=== PATIENT | female | born 1960 | race Caucasian/White ===

== ENCOUNTER 2018-01-22 19:39 | Emergency (ER) | payer MEDICAID ==
[~2018-01-22] VITALS: Ht 185.4 cm; Wt 112.9 kg
[2018-01-22 20:31] LABS: Urine Bacteria FEW /hpf (None Seen); Urine Blood Negative /uL (Negative); Urine Mucus FEW (None Seen); Urine Specific Gravity 1.016 (1.001-1.035); Urine WBC 1 /hpf (0 - 5)
[2018-01-22 20:45] LABS: Basophils # (auto) 0.1 uL; Basophils % (auto) 1.1 % (0.0-2.0); Eosinophils # (auto) 0.4 uL; Eosinophils % (auto) 5.3 % (0.0-7.0); Hematocrit 47.7 % (36.0-46.0); Hemoglobin 16.1 g/dL (12.2-16.2); Lymphocytes # (auto) 1.6 uL; Lymphocytes % (auto) 19.2 % (10.0-50.0); Mean Corpuscular Hemoglobin 31.5 pg (28.0-32.0); Mean Corpuscular Hgb Conc. 33.7 g/dL (32.0-36.0); Mean Corpuscular Volume 93.4 fL (80.0-100.0); Monocytes # (auto) 0.7 uL; Monocytes % (auto) 8.2 % (0.0-12.0); Neutrophils # (auto) 5.4 uL; Neutrophils % (auto) 66.2 % (37.0-80.0); Nucleated Red Blood Cells % 0.1 %; Platelet Count (auto) 328 10^3/uL (140-450); Red Blood Cells 5.11 10^6/uL (4.0-5.20); Red Cell Distribution Width 13.2 % (11.8-14.3); White Blood Cell 8.2 10^3/uL (4.4-10.8)
[2018-01-22 20:56] LABS: INR 0.96 (0.9-1.15); Partial Thromboplastin Time 26.8 sec (22.64-33.71); Prothrombin Time 10.5 sec (9.37-12.3)
[2018-01-22 21:06] LABS: Albumin 3.7 g/dL (3.4-5.0); Amylase 52 U/L (25-115); Anion Gap 8 (5-15); Blood Urea Nitrogen 14 mg/dL (7-18); Calcium 8.8 mg/dL (8.5-10.1); Carbon Dioxide 27 mmol/L (21-32); Chloride 109 mmol/L (98-107); GFR African American 74 mL/min; GFR Non-African American 61 mL/min; Glucose 93 mg/dL (74-106); Lipase 226 U/L (73-393); Magnesium 2.3 mg/dL (1.6-2.6); Sodium 144 mmol/L (136-145)
[2018-01-22 21:14] LABS: Alanine Aminotransferase 69 U/L (13-56); Alkaline Phosphatase 79 U/L (45-117); Aspartate Aminotransferase 36 U/L (15-37); Bilirubin, Total 0.5 mg/dL (0.2-1.0); Total Protein 7.3 g/dL (6.4-8.2)
[2018-01-23] MEDS ORDERED: ACETAMINOPHEN 325 MG TAB PO ONE ×2 (01:25→01:30)
[2018-01-23] MEDS ORDERED: metroNIDAZOLE 500 MG TAB PO ONE (01:45)
[2018-01-23] MEDS ORDERED: SODIUM CHLORIDE 0.9% 1,000 ML IV ONE (01:45)
[2018-01-23] MEDS ORDERED: ONDANSETRON HCL 4 MG/2 ML VIAL IV ONE (01:45)
[2018-01-23] MEDS ORDERED: NALBUPHINE HCL 10 MG/1ml INJECTION IV ONE (01:45)
[2018-01-23 02:20] LABS: Amylase 51 U/L (25-115); Lipase 223 U/L (73-393)
[2018-01-23 05:23] VITALS: BP 125/75
== END 2018-01-23 05:39 | disposition home or self-care (01) ==
LOC: ER 19:39
DX: K80.20 Calculus of gallbladder without cholecystitis without obstruction (principal); K57.30 Diverticulosis of large intestine without perforation or abscess without bleeding; J45.909 Unspecified asthma, uncomplicated; I10 Essential (primary) hypertension; M79.7 Fibromyalgia; Z86.73 Personal history of transient ischemic attack (TIA), and cerebral infarction without residual deficits
CPT/HCPCS: 36415; 74176; 80053; 81001; 81025; 82150; 83690; 83735; 84484; 85025; 85610; 85730; 93005; 96361; 96374; 96375; 99285; J2300; J2405

== ENCOUNTER 2018-11-03 16:37 | Emergency (ER) | payer MEDICAID ==
[2018-11-03 16:57] VITALS: BP 113/76
== END 2018-11-03 17:46 | disposition home or self-care (01) ==
LOC: ER 16:40
DX: L53.9 Erythematous condition, unspecified (principal); R22.32 Localized swelling, mass and lump, left upper limb; T88.1XXA Other complications following immunization, not elsewhere classified, initial encounter; J45.909 Unspecified asthma, uncomplicated; I10 Essential (primary) hypertension; F17.210 Nicotine dependence, cigarettes, uncomplicated; Z86.73 Personal history of transient ischemic attack (TIA), and cerebral infarction without residual deficits

== ENCOUNTER 2018-11-25 11:33 | Emergency (ER) | payer MEDICAID ==
[~2018-11-25] VITALS: Ht 170.2 cm; Wt 90.7 kg
[2018-11-25 12:26] LABS: Basophils # (auto) 0.1 uL; Basophils % (auto) 0.9 % (0.0-2.0); Eosinophils # (auto) 0.3 uL; Eosinophils % (auto) 5.1 % (0.0-7.0); Hematocrit 43.3 % (36.0-46.0); Hemoglobin 14.9 g/dL (12.2-16.2); Lymphocytes # (auto) 1.3 uL; Lymphocytes % (auto) 22.5 % (10.0-50.0); Mean Corpuscular Hemoglobin 31.6 pg (28.0-32.0); Mean Corpuscular Hgb Conc. 34.4 g/dL (32.0-36.0); Mean Corpuscular Volume 91.8 fL (80.0-100.0); Monocytes # (auto) 0.5 uL; Monocytes % (auto) 9.1 % (0.0-12.0); Neutrophils # (auto) 3.7 uL; Neutrophils % (auto) 62.4 % (37.0-80.0); Nucleated Red Blood Cells % 0.1 %; Platelet Count (auto) 274 10^3/uL (140-450); Red Blood Cells 4.72 10^6/uL (4.0-5.20); Red Cell Distribution Width 13.1 % (11.8-14.3); White Blood Cell 5.9 10^3/uL (4.4-10.8)
[2018-11-25 12:33] LABS: INR 0.95 (0.9-1.15); Partial Thromboplastin Time 27.1 sec (23.78-33.04); Prothrombin Time 10.2 sec (9.27-12.13)
[2018-11-25 12:35] LABS: Alanine Aminotransferase 52 U/L (13-56); Albumin 3.3 g/dL (3.4-5.0); Anion Gap 7 (5-15); Aspartate Aminotransferase 30 U/L (15-37); BUN/Creatinine Ratio 9.3; Blood Urea Nitrogen 9 mg/dL (7-18); Calcium 8.4 mg/dL (8.5-10.1); Carbon Dioxide 26 mmol/L (21-32); Chloride 109 mmol/L (98-107); GFR African American 76 mL/min; GFR Non-African American 63 mL/min; Glucose 80 mg/dL (74-106); Potassium 3.9 mmol/L (3.5-5.1); Sodium 142 mmol/L (136-145)
[2018-11-25 12:39] LABS: Alkaline Phosphatase 75 U/L (45-117); Bilirubin, Total 0.7 mg/dL (0.2-1.0); Total Protein 6.6 g/dL (6.4-8.2)
[2018-11-25] MEDS ORDERED: ASPirin-EC 81 mg tab PO ONE (16:30)
[2018-11-25] MEDS ORDERED: ONDANSETRON ODT 4 MG TAB PO ONE (16:30)
[2018-11-25] MEDS ORDERED: IOHEXOL 350 MG/ML 100ML IJ ONE (21:27)
[2018-11-25] MEDS ORDERED: MORPHINE SULFATE 4 MG/ML SYR/VIAL IV ONE (21:30)
[2018-11-25] MEDS ORDERED: NITROGLYCERIN 0.4 MG SL TAB SL ONE (21:30)
[2018-11-26 01:20] VITALS: BP 128/72
== END 2018-11-26 01:22 | disposition home or self-care (01) ==
LOC: EDBD 11:33 → ER 11:33
DX: R07.9 Chest pain, unspecified (principal); K80.20 Calculus of gallbladder without cholecystitis without obstruction; R59.0 Localized enlarged lymph nodes; I10 Essential (primary) hypertension; J45.909 Unspecified asthma, uncomplicated; Z86.73 Personal history of transient ischemic attack (TIA), and cerebral infarction without residual deficits
CPT/HCPCS: 36415; 71046; 71275; 80053; 83880; 84484; 85025; 85379; 85610; 85730; 93005; 96374; 99284; J2270; Q0162; Q9967

== ENCOUNTER 2020-07-19 11:21 | Emergency (ER) | payer MEDICAID ==
[~2020-07-19] VITALS: Ht 185.4 cm; Wt 113.4 kg
[2020-07-19 11:45] VITALS: BP 120/69
== END 2020-07-19 16:55 | disposition home or self-care (01) ==
LOC: ER 11:21
DX: S52.515A Nondisplaced fracture of left radial styloid process, initial encounter for closed fracture (principal); J01.90 Acute sinusitis, unspecified; Z20.828 Contact with and (suspected) exposure to other viral communicable diseases; J45.909 Unspecified asthma, uncomplicated; I10 Essential (primary) hypertension; Z87.891 Personal history of nicotine dependence; W18.39XA Other fall on same level, initial encounter; Y93.89 Activity, other specified; Y92.89 Other specified places as the place of occurrence of the external cause; Y99.8 Other external cause status
CPT/HCPCS: 29125; 36415; 71045; 73110; 73130; 87426

== ENCOUNTER 2021-03-11 12:22 | Emergency (ER) | payer MEDICAID ==
[~2021-03-11] VITALS: Ht 185.4 cm; Wt 113.4 kg
[2021-03-11 12:47] VITALS: BP 138/84
[2021-03-11] MEDS ORDERED: HYDROcodone-ACET 7.5/325MG TAB PO ONE (13:30)
[2021-03-11] MEDS ORDERED: HYDROcodone-ACET 7.5/325MG TAB ONE (13:37)
== END 2021-03-11 14:09 | disposition home or self-care (01) ==
LOC: ER 12:29
DX: S63.501A Unspecified sprain of right wrist, initial encounter (principal); S90.122A Contusion of left lesser toe(s) without damage to nail, initial encounter; S90.121A Contusion of right lesser toe(s) without damage to nail, initial encounter; I10 Essential (primary) hypertension; J45.909 Unspecified asthma, uncomplicated; F12.10 Cannabis abuse, uncomplicated; Z87.891 Personal history of nicotine dependence; W01.0XXA Fall on same level from slipping, tripping and stumbling without subsequent striking against object, initial encounter; Y93.89 Activity, other specified; Y92.89 Other specified places as the place of occurrence of the external cause; Y99.8 Other external cause status
CPT/HCPCS: 73110; 73630

== ENCOUNTER 2022-05-01 23:36 | Inpatient (IN) | payer MEDICAID ==
[~2022-05-01] VITALS: Ht 185.4 cm; Wt 108.0 kg
[2022-05-02 00:57] LABS: Basophils # (auto) 0.1 10 ^3/uL (0-0.2); Basophils % (auto) 1.1 % (0.0-2.0); Eosinophils # (auto) 0.3 10 ^3/uL (0-0.8); Hematocrit 47.2 % (36.0-46.0); Hemoglobin 15.6 g/dL (12.2-16.2); Lymphocytes # (auto) 2.6 10 ^3/uL (0.4-5.4); Lymphocytes % (auto) 33.2 % (10.0-50.0); Mean Corpuscular Hemoglobin 30.2 pg (28.0-32.0); Mean Corpuscular Volume 91.6 fL (80.0-100.0); Monocytes # (auto) 0.7 10 ^3/uL (0-1.3); Monocytes % (auto) 9.5 % (0.0-12.0); Neutrophils # (auto) 4.1 10 ^3/uL (1.6-8.6); Neutrophils % (auto) 52.2 % (37.0-80.0); Nucleated Red Blood Cells % 0.1 %; Red Blood Cells 5.16 10^6/uL (4.0-5.20); Red Cell Distribution Width 14.2 % (11.8-14.3); White Blood Cell 7.7 10^3/uL (4.4-10.8)
[2022-05-02 01:22] LABS: Albumin 3.8 g/dL (3.4-5.0); BUN/Creatinine Ratio 19.2; Calcium 8.9 mg/dL (8.5-10.1); Potassium 3.6 mmol/L (3.5-5.1)
[2022-05-02 01:24] LABS: Bilirubin, Total 1.1 mg/dL (0.2-1.0); Total Protein 6.9 g/dL (6.4-8.2)
[2022-05-02] MEDS ORDERED: TOPI50TA53 PO (04:33)
[2022-05-02] MEDS ORDERED: METO-289 PO (04:33)
[2022-05-02] MEDS ORDERED: DAPA1TAB4 PO (04:33)
[2022-05-02] MEDS ORDERED: GABA300C10 PO (04:33)
[2022-05-02] MEDS ORDERED: ATOR40TA52 PO (04:33)
[2022-05-02] MEDS ORDERED: hydrALAZINE HCL 20 MG/ML VL IV PRN (06:45)
[2022-05-02] MEDS ORDERED: ONDANSETRON HCL 4 MG/2 ML VIAL IV PRN (06:45)
[2022-05-02] MEDS ORDERED: ACETAMINOPHEN 325 MG TAB PO PRN (06:45)
[2022-05-02] MEDS ORDERED: MORPHINE SULFATE INJ 2 MG/ml SYRG IV PRN ×2 (06:45→07:15)
[2022-05-02] MEDS ORDERED: DOCUSATE SOD 100 MG CAP PO PRN (06:45)
[2022-05-02] MEDS ORDERED: HYDROcodone-ACET 5/325MG TAB PO PRN (06:45)
[2022-05-02] MEDS ORDERED: NITROGLYCERIN 0.4 MG SL TAB SL PRN (07:15)
[2022-05-02 08:14] LABS: Basophils # (auto) 0.1 10 ^3/uL (0-0.2); Basophils % (auto) 1.3 % (0.0-2.0); Eosinophils # (auto) 0.4 10 ^3/uL (0-0.8); Eosinophils % (auto) 5.9 % (0.0-7.0); Hematocrit 45.1 % (36.0-46.0); Lymphocytes % (auto) 32.9 % (10.0-50.0); Mean Corpuscular Hemoglobin 30.4 pg (28.0-32.0); Mean Corpuscular Hgb Conc. 33.3 g/dL (32.0-36.0); Mean Corpuscular Volume 91.4 fL (80.0-100.0); Monocytes # (auto) 0.7 10 ^3/uL (0-1.3); Monocytes % (auto) 11.5 % (0.0-12.0); Neutrophils # (auto) 2.9 10 ^3/uL (1.6-8.6); Neutrophils % (auto) 48.4 % (37.0-80.0); Nucleated Red Blood Cells % 0.1 %; Red Blood Cells 4.94 10^6/uL (4.0-5.20)
[2022-05-02 08:40] LABS: Albumin 3.5 g/dL (3.4-5.0); Calcium 8.9 mg/dL (8.5-10.1); Potassium 3.7 mmol/L (3.5-5.1)
[2022-05-02 08:44] LABS: BUN/Creatinine Ratio 20.5; Bilirubin, Total 1.6 mg/dL (0.2-1.0); Total Protein 6.2 g/dL (6.4-8.2)
[2022-05-02 09:16] VITALS: BP 127/62
[2022-05-02] MEDS: ASPirin 81 mg TAB PO SCH (09:16)
[2022-05-02] MEDS: METOPROLOL TARTRATE 25 MG TAB PO SCH ×2 (09:16→21:13)
[2022-05-02 13:00] VITALS: BP 104/54
[2022-05-02] MEDS: SODIUM CHLOR 0.9% PF (SALINE LOCK) 10ML VIAL/SYR IV SCH ×2 (16:42→21:14)
[2022-05-02 17:00] VITALS: BP 104/47
[2022-05-02 22:00] VITALS: BP 118/56
[2022-05-02] MEDS ORDERED: ATORVASTATIN 20 MG TAB PO SCH (22:00)
[2022-05-03 05:00] VITALS: BP 110/57
[2022-05-03 05:22] LABS: Basophils # (auto) 0.1 10 ^3/uL (0-0.2); Basophils % (auto) 1.1 % (0.0-2.0); Eosinophils # (auto) 0.4 10 ^3/uL (0-0.8); Eosinophils % (auto) 5.8 % (0.0-7.0); Hematocrit 46.8 % (36.0-46.0); Hemoglobin 15.7 g/dL (12.2-16.2); Lymphocytes # (auto) 1.8 10 ^3/uL (0.4-5.4); Mean Corpuscular Hemoglobin 30.7 pg (28.0-32.0); Mean Corpuscular Hgb Conc. 33.5 g/dL (32.0-36.0); Mean Corpuscular Volume 91.6 fL (80.0-100.0); Monocytes # (auto) 0.7 10 ^3/uL (0-1.3); Monocytes % (auto) 9.7 % (0.0-12.0); Neutrophils # (auto) 3.9 10 ^3/uL (1.6-8.6); Neutrophils % (auto) 57.4 % (37.0-80.0); Nucleated Red Blood Cells % 0.2 %; Red Blood Cells 5.11 10^6/uL (4.0-5.20); Red Cell Distribution Width 13.8 % (11.8-14.3); White Blood Cell 6.7 10^3/uL (4.4-10.8)
[2022-05-03] MEDS: SODIUM CHLOR 0.9% PF (SALINE LOCK) 10ML VIAL/SYR IV SCH ×3 (05:29→21:42)
[2022-05-03 05:51] LABS: Albumin 3.5 g/dL (3.4-5.0); BUN/Creatinine Ratio 15.7; Bilirubin, Total 1.7 mg/dL (0.2-1.0); Total Protein 6.3 g/dL (6.4-8.2)
[2022-05-03 08:30] VITALS: BP 92/55
[2022-05-03 09:00] VITALS: BP 92/55
[2022-05-03] MEDS: METOPROLOL TARTRATE 25 MG TAB PO SCH (09:05)
[2022-05-03] MEDS: ASPirin 81 mg TAB PO SCH (09:05)
[2022-05-03 13:00] VITALS: BP 97/45
[2022-05-03 17:08] VITALS: BP 97/45
[2022-05-03 22:00] VITALS: BP 115/58
[2022-05-03] MEDS ORDERED: ATORVASTATIN 20 MG TAB PO SCH (22:00)
[2022-05-03] MEDS ORDERED: GABAPENTIN 300 MG CAP PO SCH (22:00)
[2022-05-04] MEDS ORDERED: TOPIRAMATE 25 MG TAB PO SCH (10:00)
[2022-05-04] MEDS ORDERED: METOPROLOL SUCCINATE XL 50 MG TAB PO SCH (10:00)
[2022-05-04] MEDS ORDERED: DAPAGLIFLOZIN 5 MG TAB PO SCH (10:00)
== END 2022-05-03 22:52 | disposition home or self-care (01) | DRG 203 ==
LOC: EDBD 23:36 → ER 23:36 → TELE 05-02 07:03 → TELE-WESTW 05-02 08:58
PROVIDERS: ADMIT Nurse Practitioner Family; ATTEND Internal Medicine
DX: R07.89 Other chest pain (principal); I11.0 Hypertensive heart disease with heart failure; I50.9 Heart failure, unspecified; F41.9 Anxiety disorder, unspecified; J45.909 Unspecified asthma, uncomplicated; M79.7 Fibromyalgia; Z86.73 Personal history of transient ischemic attack (TIA), and cerebral infarction without residual deficits; Z87.891 Personal history of nicotine dependence; Z20.822 Contact with and (suspected) exposure to COVID-19
CPT/HCPCS: 36415; 71045; 80053; 83735; 83880; 84484; 85025; 93005; 93306; G0378